=== PATIENT | male | born 1950 | race Caucasian/White ===

== ENCOUNTER → 2016-10-01 | Outpatient (CLI) | payer MEDICARE, OTHER ==
[~2016-10-01] MED LIST: ALEVE220 MG PO; ASPIRIN EC81 MG PO; LIPITOR80 MG PO; THERAGRAN-M1 TAB PO; TRAMADOL HCL50 MG PO
--- NOTE | ~2016-10-01 | ESTC ---
Cardiac Perfusion Imaging Demographics Patient Name RALPH Floyd Gender Male Patient Number [id number] Race Visit Number [id number] Ethnicity [employer] ID Room Number Accession Number [id number] Height 68 inches Date of 1950 Weight 200 pounds Physician Interpreting Sobeida Browning MD Date of study 10/01/2016 Physician Supervising /MALLIKA GALLEGOS Technologist Tyler Silva APRN Ordering Physician Sobeida Browning MD Stress Vrtiska Adalberto RVT, engine test cell technician RDCS Stress ECG Reading Maria Alejandra Bailon Nurse Karen Jensen Physician CRUZ[employer]O outer diameter grinder tool Procedure Type: Nuclear Stress Test:Exercise, Cardiolite Stress Test Procedure Start time: 10/01/2016 07:40 Indications: Chest pain. Risk Factors The patient risk factors include:prior PCI on 07/22/2008;former tobacco use, hypercholesterolemia, family history of premature CAD and prior [place] . Conclusions Summary Cardiolite SPECT images demonstrates an inferobasal fixed defect with a rim of reversibility. There is no wall motion abnormalities thus rendering this possibly consistent with artifact. Normal TID ratio Gated images demonstrate normal left ventricular systolic function without inducible wall motion abnormalities. LVEF is 58% Stress Protocols Resting ECG RSR with T wave inversion in III and AVF Resting HR:60 bpm Resting BP:140/80 mmHg Pre-stress physical exam: History of CAD. Patient assessed by Olvin Bess APRN prior to testing. Stress Protocol:Exercise Peak HR:136 bpm HR response: Appropriate Peak BP:182/82 mmHg BP response: Appropriate Predicted HR: 152 bpm HR/BP product:43801 % of predicted HR: 89 Test duration:09:00 min Reason for termination:Target heart rate Exercise effort:Excellent Perceived exertion:[address] depression lead II, III, AVF V5,V6 Arrhythmias No rhythm abnormality. Symptoms Complained of leg fatigue. Stress Interpretation The electrocardiographic portion of the stress test was positive for ischemia. Blood pressure response was normal, heart rate response was normal for exertion. The [place] Treadmill Score was +4. This corresponds to a low risk stress test. Stress supervision and interpretation provided by Balbina Bess APRN . Imaging Results Summed scores - Summed stress score: 3 - Summed rest score: 3 - Summed difference score: 0 Stress ejection Ejection fraction:57 % EDV :91 ml ESV :39 ml Stroke volume :52 ml LV mass :132 gr Imaging Protocols Rest Stress Isotope:Tc99m Sestamibi IV Isotope: Tc99m Sestamibi IV Isotope dose:13.5 mCi Isotope dose:41.96 mCi Date:10/01/2016 07:06 Date:10/01/2016 08:43 Technique: SPECT Technique: Gated Supine SPECT Supine Scan Time:30 minutes post injection Scan Time:45-60 minutes post injection Medical History Admission Data Admission date: 10/01/2016 Admission Time: 06:47 Hospital Status: Outpatient. Signatures dtt: Nam Vidales (cardio) dtd: 10/01/16 0740 Physician Self Edit
== END | disposition disaster alternative care site (69) ==
LOC: GRAD 06:47
DX: R07.9 Chest pain, unspecified (principal); R06.02 Shortness of breath; I25.10 Atherosclerotic heart disease of native coronary artery without angina pectoris; I25.2 Old myocardial infarction; E78.00 Pure hypercholesterolemia, unspecified; Z82.49 Family history of ischemic heart disease and other diseases of the circulatory system; Z87.891 Personal history of nicotine dependence
CPT/HCPCS: A9500